=== PATIENT | male | born 1975 | race Asian ===

== ENCOUNTER 2020-09-01 13:57 | Outpatient (RCR) | payer OTHER, SELFPAY | END 2020-11-07 23:59 | LOC: IMMUN 13:57 | PROVIDERS: Visit Provider Family Medicine | DX: Z23 Encounter for immunization (principal) | CPT/HCPCS: 0001A; 0002A; 91300 ==

== ENCOUNTER → 2021-05-02 12:01 | Outpatient (CLI) | payer OTHER, SELFPAY | PROVIDERS: PCP Internal Medicine; Visit Provider Family Medicine | DX: Z23 Encounter for immunization (principal) | CPT/HCPCS: 0004A; 91300 ==